=== PATIENT | male | born 1965 | race Caucasian/White ===

== ENCOUNTER 2018-09-17 15:23 | Emergency (ER) | payer OTHER ==
[~2018-09-17] VITALS: Ht 185.4 cm; Wt 99.8 kg
[2018-09-17 16:52] VITALS: BP 122/67
[2018-09-17] MEDS ORDERED: IBUPROFEN 600 MG TABLET PO ONE (18:33)
[2018-09-17] MEDS: IBUPROFEN 600 MG TABLET PO ONE (18:35)
== END 2018-09-17 19:25 | disposition home or self-care (01) ==
LOC: ER 15:30
DX: J20.9 Acute bronchitis, unspecified (principal); K21.9 Gastro-esophageal reflux disease without esophagitis
CPT/HCPCS: 71045-TC